=== PATIENT | female | born 1935 | race Caucasian/White ===

== ENCOUNTER → 2017-05-13 | Outpatient (CLI) | payer MEDICARE, BC ==
[~2017-05-13] MED LIST: ALPRAZOLAM PO; AMLODIPINE BESYL5 MG PO; CALCIUM + D 6001 TA1 PO; CALTRATE PLUS T1 TAB PO; FLAGYL PO; FOSAMAX PO; IBUPROFEN800 MG PO; LEVAQUIN PO; LEVAQUIN750 MG PO; LEVOTHROID100 MC1 PO; LEVOTHROID50 MCG PO; LISINOPRIL PO; LOTENSIN20 MG PO; SYNTHROID PO; TOPROL XL PO; TYLOX 5/500 CAP1 CAP PO
--- NOTE | ~2017-05-13 | CT3 ---
[facility] A Service of [facility] & [facility] RADIOLOGY TEXT RESULTS PATIENT: MARTA LAZARO LOCATION: [facility] : 35 UNIT #: [id number] AGE: [address]: Fahad Sorenson MD SEX: F ORDER DR: [id number] [facility] [address] [facility] [place], [place] [address] [id number] O MR#: [id number] Acc #: [id number] NAME: MARTA LAZARO. : 1935 SEX: F STUDY DATE/TIME: 05/13/2017 10:08 [facility]: STUDY DESCRIPTION: CT Abd and Pelv WWo Cont Attending Physician: Fahad Sorenson M.D. Referring Physician: Mario Hensley Jr., M.D. Ordering Physician: Fahad Sorenson M.D. Primary Care Physician: Fahad Sorenson M.D. MEDICAL IMAGING REPORT This report is preliminary unless electronic signature is present EXAM Abdomen and pelvis CT with and without contrast with multiphase postcontrast evaluation of the kidneys HISTORY Lower pelvic pain and left upper quadrant abdominal pain for the past several months, worsening over that time with occasional nausea, vomiting and diarrhea. Hematuria noted about 6 months ago. TECHNIQUE Axial imaging was obtained through the abdomen and pelvis pre and post contrast. 100 mL of Isovue was used. This CT exam was performed with one or more of the following radiation dose reduction techniques: automatic exposure control, adjustment of mA and/or kV according to patient size, and iterative reconstruction. COMPARISON 05/21/2010 FINDINGS Precontrast scanning shows dense atherosclerotic calcification of the aorta. No kidney stones or ureteral stones are seen. Multiphase postcontrast evaluation shows postoperative changes of cholecystectomy with mild bile duct dilatation. This is unchanged from the previous scan in 2009. The spleen, pancreas and adrenal glands are unremarkable. Simple cysts are noted in both kidneys and there is a small area of cortical loss in the right kidney that could be related to previous infection or renal infarct. There is no evidence of retroperitoneal adenopathy or ascites. No distended bowel loops are seen. Delayed excretory phase imaging shows good opacification of the ureters with no ureteral masses or filling defects identified. There is a small STS. [facility] A Service of [facility] RADIOLOGY TEXT RESULTS PATIENT: MARTA LAZARO LOCATION: [facility] : 35 UNIT #: [id number] AGE: [address]: Fahad Sorenson MD SEX: F ORDER DR: umbilical hernia that contains fat only. It is unchanged from the previous exam. In the pelvis diverticulosis is seen in the sigmoid colon. No acute inflammatory changes are seen. No adenopathy is noted. IMPRESSION 1. Bilateral renal cysts. 2. No suspicious renal masses are seen and no evidence of kidney stone disease. 3. Prominent bile ducts likely from previous cholecystectomy. 4. Diverticulosis. No acute or inflammatory changes are seen in the abdomen or pelvis. Dictated by... Shahid Sepulveda M.D. THIS IS AN ELECTRONICALLY VERIFIED REPORT Shahid Sepulveda M.D. at 05/14/2017 4:08 PM Jessica TD: 05/14/2017 10:33 JOB #: [id number] MEDICAL IMAGING REPORT Page 1 of 1 COPY
[2017-05-13 15:21] LABS: POC - CREATININE 1.02 mg/dL (0.44-1.03)
== END | disposition home or self-care (01) ==
LOC: CCAT 09:08
PROVIDERS: Family Medicine
DX: R10.9 Unspecified abdominal pain (principal); Q61.02 Congenital multiple renal cysts; K57.92 Diverticulitis of intestine, part unspecified, without perforation or abscess without bleeding; Z90.49 Acquired absence of other specified parts of digestive tract
CPT/HCPCS: 74178; 82565; Q9967